=== PATIENT | female | born 1995 | race Caucasian/White ===

== ENCOUNTER → 2017-07-05 | Outpatient (CLI) | payer BC ==
[~2017-07-05] MED LIST: FLNCV PO; PRENTAB26 PO
--- NOTE | 2017-07-08 08:26 | DIAGNOSTIC IMAGING REPORT ---
<14 WKS SINGLE CLINICAL HISTORY: 21 years-old Female presenting with PELVIC PAIN, 8 WKS, left flank pain, last menstrual period 05/09/2017, no bleeding. TECHNIQUE: Real-time grayscale and M-mode Doppler ultrasound imaging of the pelvis was performed first using a transabdominal probe and subsequently transvaginal for better characterization. Color and spectral Doppler ultrasound imaging of the adnexa was also performed. COMPARISON: None. FINDINGS: Uterus: Single live intrauterine . [place]-rump length measures 11 mm which correlates with an estimated gestational age of 7 weeks 1 day. Gestational sac and yolk sac. heart rate 128 beats per minute. Retroflexed uterus. Normal amniotic fluid volume. Unable to accurately assess placental implantation secondary to early gestational age. No perigestational fluid to suggest hemorrhage. Cervix not well characterized. Right adnexa: Right ovary contains a corpus luteum. Right ovary measures 3.2 x 2.3 x 2.0 cm. Normal color Doppler flow and arterial and venous waveforms within the ovarian parenchyma. Left adnexa: Left ovary normal. Left ovary measures 2.8 x 1.5 x 2.5 cm. Normal color Doppler flow and arterial and venous waveforms within the ovarian parenchyma. Other: Trace free fluid, likely physiologic. IMPRESSION: Single live intrauterine with estimated gestational age of 7 weeks 1 day and estimated date of delivery 02/23/2018. Electronically signed by: Serafin Wolf M.D. 07/05/2017 1:15 PM Dictated Date/Time: 07/05/2017 1:11 PM
== END | disposition home or self-care (01) ==
LOC: C.ULTRBC 12:19
PROVIDERS: ATTEND Family Medicine
DX: R10.2 Pelvic and perineal pain (principal)

== ENCOUNTER → 2017-07-15 | Outpatient (CLI) | payer BC ==
[~2017-07-15] MED LIST changes: -PRENTAB26 PO
== END | disposition home or self-care (01) ==
LOC: C.LABSPEC 17:39
PROVIDERS: ATTEND Obstetrics & Gynecology
DX: Z34.01 Encounter for supervision of normal first pregnancy, first trimester (principal); Z3A.00 Weeks of gestation of pregnancy not specified

== ENCOUNTER → 2017-07-22 | Outpatient (CLI) | payer BC | END | disposition home or self-care (01) | LOC: C.LABSPEC 17:29 | PROVIDERS: ATTEND Obstetrics & Gynecology | DX: Z34.01 Encounter for supervision of normal first pregnancy, first trimester (principal); Z3A.00 Weeks of gestation of pregnancy not specified ==

== ENCOUNTER → 2017-07-22 | Outpatient (CLI) | payer BC | END | disposition home or self-care (01) | LOC: C.PAPS 11:35 | PROVIDERS: ATTEND Obstetrics & Gynecology | DX: Z34.01 Encounter for supervision of normal first pregnancy, first trimester (principal) ==

== ENCOUNTER → 2017-07-29 | Outpatient (CLI) | payer BC ==
[2017-07-29 15:26] LABS: BASO % 0.2 %; BASO ABS # 0.02 K/uL (0-0.2); EOS % 0.4 %; EOS ABS # 0.04 K/uL (0-0.5); HEMATOCRIT 39.4 % (37-47); HEMOGLOBIN 13.9 g/dL (12.0-16.0); IG# 0.03 K/uL (0.00-0.02); LYMPH % 17.9 %; LYMPH ABS # 1.61 K/uL (1.2-3.4); MEAN CELL VOLUME 87.4 fL (80-100); MEAN CORPUSCULAR HEMOGLOBIN 30.8 pg (25-34); MEAN CORPUSCULAR HGB CONC 35.3 g/dl (32-36); MEAN PLATELET VOLUME 10.6 fL (7.4-10.4); MONO % 4.1 %; MONO ABS # 0.37 K/uL (0.11-0.59); NEUT % 77.1 %; NEUT ABS # 6.91 K/uL (1.4-6.5); PLATELET COUNT 259 K/uL (130-400); RED CELL DISTRIBUTION WIDTH CV 12.8 % (11.5-14.5); RED CELL DISTRIBUTION WIDTH SD 41.1 fL (36.4-46.3); WHITE BLOOD COUNT 8.98 K/uL (4.8-10.8)
== END | disposition home or self-care (01) ==
LOC: C.LAB1850 12:50
PROVIDERS: ATTEND Obstetrics & Gynecology
DX: Z34.01 Encounter for supervision of normal first pregnancy, first trimester (principal)

== ENCOUNTER → 2017-09-02 | Outpatient (CLI) | payer BC | END | disposition home or self-care (01) | LOC: C.LAB1850 14:23 | PROVIDERS: ATTEND Obstetrics & Gynecology | DX: Z34.02 Encounter for supervision of normal first pregnancy, second trimester (principal) ==

== ENCOUNTER → 2017-11-21 | Outpatient (CLI) | payer BC ==
[2017-11-21 16:35] LABS: HEMATOCRIT 35.2 % (37-47); HEMOGLOBIN 12.3 g/dL (12.0-16.0)
== END | disposition home or self-care (01) ==
LOC: C.LAB1850 15:01
PROVIDERS: ATTEND Obstetrics & Gynecology
DX: Z34.03 Encounter for supervision of normal first pregnancy, third trimester (principal)

== ENCOUNTER 2018-02-13 16:54 | Outpatient (CLI) | payer BC ==
[~2018-02-13] VITALS: Ht 149.9 cm; Wt 65.5 kg
[2018-02-13] MEDS ORDERED: PRENTAB26 PO (17:34)
[2018-02-13 17:36] VITALS: Ht 149.9 cm; Wt 65.5 kg
== END 2018-02-13 18:48 | disposition home or self-care (01) ==
LOC: C.LD 16:54 → C.OPB 16:54 → EDSTATUS 16:56 → C.OPB 18:48
PROVIDERS: ATTEND Obstetrics & Gynecology
DX: Z34.00 Encounter for supervision of normal first pregnancy, unspecified trimester (principal)

== ENCOUNTER 2018-02-15 01:46 | Outpatient (CLI) | payer BC ==
[~2018-02-15 01:46] MED LIST changes: -FLNCV PO; +PRENTAB26 PO
--- NOTE | 2018-02-22 14:07 | EDITING REQUIRED CODING QUERY ---
DIAGNOSIS NEEDED To promote full compliance with coding requirements relating to patient care, physician participation is requested in all cases of director of sleep uncertainty. Please assist us with the question(s) below: Coding Question: The patient received care in labor and delivery on 02/15/18 as noted within the record. Please document the diagnosis that is being addressed by the medication/treatment. Provider Response: DIAGNOSIS: R/O rupture of amniotic membrane WEEKS OF GESTATION: 3rd trimester Thank you for your assistance, Debra Chavez - Camera Tuning Engineer
== END 2018-02-15 03:57 | disposition home or self-care (01) ==
LOC: C.LD 01:46 → C.OPB 01:46
PROVIDERS: ATTEND Obstetrics & Gynecology
DX: Z34.03 Encounter for supervision of normal first pregnancy, third trimester (principal)

== ENCOUNTER 2018-02-17 11:45 | Inpatient (IN) | payer BC ==
[~2018-02-17] VITALS: Ht 157.5 cm; Wt 64.5 kg
[2018-02-17] MEDS ORDERED: LACTATED RINGER'S 1000ML 1,000 ML IV PRN (12:02)
[2018-02-17 12:10] VITALS: BMI 26.0
[2018-02-17] MEDS ORDERED: PENICILLIN G POTASSIUM IV 6 MU in DEXTROSE 5% 250ML 250 ML IV ONE (12:30)
[2018-02-17 12:35] LABS: HEMOGLOBIN 13.1 g/dL (12.0-16.0); MEAN CELL VOLUME 83.3 fL (80-100); MEAN CORPUSCULAR HGB CONC 33.6 g/dl (32-36); MEAN PLATELET VOLUME 11.1 fL (7.4-10.4); PLATELET COUNT 182 K/uL (130-400); RED CELL DISTRIBUTION WIDTH CV 13.9 % (11.5-14.5); WHITE BLOOD COUNT 11.26 K/uL (4.8-10.8)
[2018-02-17] MEDS: LACTATED RINGER'S 1000ML 1,000 ML IV SCH ×2 (12:35→19:21)
[2018-02-17 13:40] VITALS: Ht 157.5 cm; Wt 64.5 kg
[2018-02-17] MEDS: PENICILLIN G POTASSIUM IV 3 MU in DEXTROSE 5% 100ML 100 ML IV PRN ×2 (16:09→20:04)
[2018-02-17] MEDS ORDERED: BUPIVACAINE 0.25% 30 ML VIAL ONE (18:56)
[2018-02-17] MEDS ORDERED: EpHEDrine SULFATE INJ 50 MG/ML AMP ONE (18:56)
[2018-02-17] MEDS ORDERED: FENTANYL CITRATE INJ 50 MCG/1 ML 2 ML VIAL ONE (18:56)
[2018-02-17] MEDS ORDERED: FENTANYL 2MCG/ML ROPIV 1.25MG/ML 100ML BAG ONE (18:57)
[2018-02-17] MEDS ORDERED: LACTATED RINGER'S 1000ML 500 ML IV PRN ×2 (19:27→20:05)
[2018-02-17] MEDS ORDERED: EpHEDrine SULFATE INJ 50 MG/ML AMP IV PRN (19:30)
[2018-02-17] MEDS ORDERED: NALOXONE HCL 0.4 MG/1 ML VIAL/CARP IV PRN (19:30)
[2018-02-17] MEDS ORDERED: OXYTOCIN 30 UNITS/500ML NSS IV PRN (20:15)
[2018-02-18] MEDS: PENICILLIN G POTASSIUM IV 3 MU in DEXTROSE 5% 100ML 100 ML IV PRN ×2 (00:03→04:11)
[2018-02-18] MEDS: LACTATED RINGER'S 1000ML 1,000 ML IV SCH (00:42)
[2018-02-18] MEDS: FENTANYL 2MCG/ML ROPIV 1.25MG/ML 100ML BAG EPI PRN ×2 (03:43→07:01)
[2018-02-18] MEDS ORDERED: HYDROCORTISONE ACETATE 25 MG SUPP PR PRN (09:00)
[2018-02-18] MEDS ORDERED: LANOLIN OINT EXT PRN (09:00)
[2018-02-18] MEDS ORDERED: SUPERCREAM 0.870 % 15GM JAR EXT PRN (09:00)
[2018-02-18] MEDS ORDERED: ACETAMINOPHEN/CODEINE 300/30MG TAB PO PRN ×2 (09:00)
[2018-02-18] MEDS ORDERED: ACETAMINOPHEN 325 MG TAB PO PRN (09:00)
[2018-02-18] MEDS ORDERED: OXYTOCIN 30 UNITS/500ML NSS IV PRN (09:00)
[2018-02-18] MEDS ORDERED: BENZOCAINE 20% AER SPR 82.5 GM CAN EXT PRN (09:00)
[2018-02-18] MEDS ORDERED: DIPHTHERIA/TETANUS/PERTUSSIS 0.5 ML SYR/VIAL IM. ONE (09:00)
--- NOTE | 2018-02-18 10:31 | Anesthesia Procedure Note ---
Anesthesia Epidural Removal Nt Date & Time Feb 18, 2018 at 10:31 Vital Signs Pain Intensity: 5.0 Notes Mental Status: alert / awake / arousable, participated in evaluation Nausea / Vomiting: adequately controlled Pain: adequately controlled Airway Patency, RR, SpO2: stable & adequate BP & HR: stable & adequate Hydration State: stable & adequate Neuraxial Anesthesia: was administered Anesthetic Complications: no major complications apparent, pt satisfied with anesthetic care Epidural: removed without complications, with tip intact
--- NOTE | 2018-02-18 11:00 | DELIVERY SUMMARY ---
DATE OF OPERATION: 02/18/2018 Patient is a 22-year-old G1, P0 white female with gestational age of 40 and 5/7th weeks who presented with ruptured membranes for clear fluid as documented in the office on exam and contractions that were every 2-3 minutes but mild. She was admitted to labor and delivery for further evaluation and management. She had walked, tried to stimulate labor and there was minimal change in her cervical dilation. She was noted to have bulging forewaters and membranes. This was ruptured for clear fluids but it was the small amount. She began and became more uncomfortable. She received effective epidural analgesia. Contractions appeared to be irregular and still mild to moderate and there was minimal cervical change. Presenting part remained high at -3 station. An IUPC was placed and then Pitocin augmentation was begun. The patient progressed to full dilation and pushed effectively over median episiotomy. Head was delivered in the right occiput anterior position, there was loose nuchal cord which was reduced after the head was delivered. The rest of the delivered with ease and was placed on the mother's abdomen. There was poor respiratory effort and poor tone. Cord was clamped and cut and the was placed on the baby bed for further attention by the nursery team. The placenta was expressed intact with the 3-vessel cord. A second-degree perineal laceration and episiotomy was repaired with 3-0 chronic in the usual fashion. Post- bleeding was controlled with dilute Pitocin. Estimated blood loss was 500 mL. Mother was doing well after delivery. The was taken to the nursery for further evaluation. I attest to the content of the Intraoperative Record and any orders documented therein. Any exception s are noted below.
[2018-02-18 12:45] VITALS: BP 116/67; PULSE 125; TEMP 37.4
[2018-02-18] MEDS: IBUPROFEN 600 MG TAB PO PRN ×2 (12:48→20:14)
[2018-02-18 15:10] VITALS: BP 111/74; PULSE 90; TEMP 36.7
[2018-02-18 20:00] VITALS: BP 119/83; PULSE 92; TEMP 36.4; O2SAT 100
[2018-02-18] MEDS: DOCUSATE SODIUM 100 MG CAP PO SCH (20:00)
[2018-02-18 23:30] VITALS: BP 109/69; PULSE 97; TEMP 36.5; O2SAT 99
[2018-02-19 03:50] VITALS: BP 111/74; PULSE 99; TEMP 36.6; O2SAT 99
[2018-02-19] MEDS: IBUPROFEN 600 MG TAB PO PRN ×2 (05:56→19:44)
[2018-02-19 07:27] VITALS: BP 109/75; PULSE 82; TEMP 36.5
[2018-02-19] MEDS ORDERED: PRENATAL VITAMIN TAB PO SCH (08:00)
--- NOTE | 2018-02-19 08:10 | Progress Note ---
Subjective Feb 19, 2018. Subjective conversation w/ patient, physical exam Diet Tolerance: Regular Diet Feeding Type: Breast Feeding Objective Vital Signs Date Time Temp Pulse Resp B/P (MAP) Pulse Ox O2 Delivery O2 Flow Rate FiO2 02/19/18 07:27 36.5 82 16 109/75 (86) Room Air 02/19/18 03:50 36.6 99 20 111/74 (86) 99 Room Air 02/18/18 23:30 99 Room Air 02/18/18 23:30 36.5 97 20 109/69 (82) 99 Room Air 02/18/18 20:00 100 Room Air 02/18/18 20:00 36.4 92 20 119/83 (95) 100 Room Air 02/18/18 15:10 36.7 90 16 111/74 (86) Room Air 02/18/18 15:10 Room Air 02/18/18 12:45 37.4 125 20 116/67 (83) Room Air 02/18/18 12:45 Room Air Physical Exam General Appearance: WELL-APPEARING, NO APPARENT DISTRESS Fundus: Firm, Non-Tender Extremities: no calf tenderness Laboratory Results Last 24 Hours Test 02/19/18 06:26 Assessment and Plan Post- Day#: 1 Continue Routine Care: - routine care - doing well
[2018-02-19 08:17] LABS: HEMATOCRIT 25.7 % (37-47); HEMOGLOBIN 8.5 g/dL (12.0-16.0)
[2018-02-19] MEDS: DOCUSATE SODIUM 100 MG CAP PO SCH (08:26)
[2018-02-19] MEDS: FERROUS SULFATE 325 MG TAB PO SCH (08:26)
[2018-02-19] MEDS: PRENATAL VITAMIN TAB PO SCH (08:26)
[2018-02-19 15:40] VITALS: BP 105/71; PULSE 92; TEMP 36.4
[2018-02-19 19:44] VITALS: BP 124/84; PULSE 103; TEMP 36.7; O2SAT 100
[2018-02-19] MEDS ORDERED: BISACODYL 5 MG TABEC PO SCH (20:00)
[2018-02-19 23:00] VITALS: BP 112/76; PULSE 79; TEMP 36.5; O2SAT 99
[2018-02-20] MEDS: IBUPROFEN 600 MG TAB PO PRN ×3 (04:27→17:54)
[2018-02-20] MEDS: DOCUSATE SODIUM 100 MG CAP PO SCH ×2 (04:49→08:00)
--- NOTE | 2018-02-20 06:49 | Progress Note ---
Subjective Feb 20, 2018. Subjective conversation w/ patient, physical exam Ambulation: ambulating normally Voiding: no voiding problems Passing Gas: Yes Diet Tolerance: Regular Diet Lochia: Small Feeding Type: Bottle Feeding Pain: pt reports 5/10 resolves with medication, overall improving Review of Systems Constitutional: No fever, No chills, No sweats Respiratory: No cough, No sputum, No wheezing Cardiac: No chest pain, No palpitations Abdomen: No pain, No nausea, No vomiting Female : No dysuria Objective Vital Signs Date Time Temp Pulse Resp B/P (MAP) Pulse Ox O2 Delivery O2 Flow Rate FiO2 02/19/18 23:00 36.5 79 16 112/76 (88) 99 Room Air 02/19/18 19:44 36.7 103 16 124/84 (97) 100 Room Air 02/19/18 19:44 Room Air 02/19/18 15:40 36.4 92 16 105/71 (82) Room Air 02/19/18 09:00 Room Air 02/19/18 07:27 36.5 82 16 109/75 (86) Room Air Physical Exam General Appearance: WELL-APPEARING, NO APPARENT DISTRESS Respiratory/Chest: chest non-tender, no respiratory distress Cardiovascular: regular rate, rhythm, no murmur Abdomen: normal bowel sounds Fundus: Firm, Relation to Umbilicus (below) Extremities: non-tender, no calf tenderness Laboratory Results Last 24 Hours Test 02/20/18 06:37 Medications Current Inpatient Medications Medications (Trade) Dose Ordered Sig/Susie Route Start Time Stop Time Status Last Admin Dose Admin Oxytocin (Pitocin IV) 30 units UD PRN IV 02/18/18 09:00 03/20/18 08:59 Benzocaine (Dermoplast Aero Spr) 1 appln PRN PRN EXT 02/18/18 09:00 03/20/18 08:59 02/18/18 12:48 1 APPLN Cocaine HCl (Supercream 0.870% Cr) BID PRN EXT 02/18/18 09:00 03/04/18 08:59 Hydrocortisone Acetate (Anusol Hc Supp) 25 mg BID PRN TX 02/18/18 09:00 03/20/18 08:59 Lanolin (Lanolin Oint) PRN PRN EXT 02/18/18 09:00 03/20/18 08:59 Ibuprofen (Motrin Tab) 600 mg Q4H PRN PO 02/18/18 09:00 03/20/18 08:59 02/20/18 04:27 600 MG Acetaminophen (Tylenol Tab) 650 mg Q6H PRN PO 02/18/18 09:00 03/20/18 08:59 Acetaminophen/ Codeine Phosphate (Tylenol w/ Codeine #3 Tab) 1 tab Q4H PRN PO 02/18/18 09:00 03/20/18 08:59 Acetaminophen/ Codeine Phosphate (Tylenol w/ Codeine #3 Tab) 2 tab Q4H PRN PO 02/18/18 09:00 03/20/18 08:59 Docusate Sodium (coLACE CAP) 100 mg BID PO 02/18/18 20:00 03/20/18 19:59 02/20/18 04:49 100 MG Ferrous Sulfate (Feosol Tab) 325 mg DAILY PO 02/19/18 08:00 03/21/18 07:59 02/19/18 08:26 325 MG Prenat Multivit/ [place]/Iron/Folic Ac ( Vitamin Tab) 1 tab DAILY PO 02/19/18 08:00 03/21/18 07:59 02/19/18 08:26 1 TAB Assessment and Plan Post- Day#: 2 Continue Routine Care: 22 yo PPD2 s/p -AFVSS, Pt doing well resting comfortably with baby -no si/sx of anemia -Plan is to formula/bottle feed -Tolerating regular diet -Continue to encourage ambulation -Routine care -Provided Discharge Counseling regarding vaginal bleeding, fever, f/u 6 weeks, no heavy lifting for 2-3 weeks, breast feeding, taking pre- vitamin, and nothing in the vagina for 6 weeks (tampons, douching, intercourse) Resident Physician Supervision Note: I interviewed and examined the patient. Discussed with Dr. Torres and agree with findings and plan as documented in the note. Any exceptions or clarifications are listed here: [None] Documented By: Daniel Chauhan Resident Tracking Resident Involvement: Resident Care Provided Care Provided: Adult Hospital Medicine
[2018-02-20 07:01] LABS: HEMATOCRIT 26.5 % (37-47); HEMOGLOBIN 8.6 g/dL (12.0-16.0)
--- NOTE | 2018-02-20 07:38 | Discharge Instructions ---
Discharge Instructions Date of Service Feb 20, 2018. Admission Reason for Admission: R/O Rupture Of Membranes Discharge Discharge Diagnosis / Problem: Discharge Goals Goal(s): Routine recovery after delivery Medications Continue Dispensed Medications: supercream, dermaplast, tucks Activity Recommendations Activity Limitations: per Instructions/Follow-up section . Instructions / Follow-Up Instructions / Follow-Up ACTIVITY RECOMMENDATIONS: * Gradual return to full activity over the next 2-3 weeks. * No lifting - nothing heavier than baby over the next 2-3 weeks. * Do not engage in vigorous exercise, sexual activity or sports until cleared by your physician. * Do not drive or operate any motorized equipment until cleared by your physician. * You may shower/bathe daily. MEDICATIONS: For discomfort or pain, you may use Acetaminophen (Tylenol), Ibuprofen (Advil), or Naproxen (Aleve) following the package directions. For constipation you may use Colace following the package directions. BREAST CARE: If you are not breast feeding: * Wear a supportive bra 24 hours a day for one to two weeks. * Avoid stimulating your breasts and nipples as much as possible during the first few weeks after delivery. * When taking a shower, have the warm water hit your back, not breasts. * When your breasts feel full, apply ice packs. Usually three to four times a day helps ease the discomfort. * Take a mild pain medication (Tylenol / Motrin) when you are uncomfortable. If breast feeding: * Use breast milk to lubricate nipples. Lansinoh cream may be used for sore nipples. You do not need to remove cream prior to breast feeding. If using a different brand of cream, check the label for directions regarding removal of cream prior to nursing. * Wear a supportive bra. * If having problems with breasts or breast feeding, call a functional consultant or your health care provider. EPISIOTOMY CARE: After delivery, if you have an episiotomy (stitches), the following steps will ease discomfort and aid healing. * For the first 24 hours after delivery, place ice packs next to your episiotomy to help reduce swelling. * After the first 24 hour-period, sitz baths, either portable or in the tub, are suggested. A shower with a shower arm sprayed over the episiotomy may be comforting. * Anitha care should be done after each voiding and bowel movement. Squirt warm water from a plastic bottle over the perineum (region of the body between the anus and urinary opening) and pat dry. * Use Dermoplast to ease discomfort. Shake container. [place] directly over the episiotomy. Place a Tucks on a clean sanitary pad next to your episiotomy. SPECIAL CARE INSTRUCTIONS: When you are discharged from the hospital, it is important for you to follow the instructions listed below: * During the first week at home, you should be able to care for yourself and your baby. In addition, the usual light household activities are encouraged. * Limit your activities to the way you feel. Do not try to clean the house or move furniture. Be sensible. * If you actively engage in sports and have done so up until the time of your delivery, you may resume these activities as soon as you feel able. This may take up to one month or even longer. Use good judgment. * Continue to take your vitamins for at least six weeks after the of your baby. * Your diet need not be limited unless you were on a special diet before your delivery. Breast-feeding mothers need around 2500 calories per day and at least 64-80 ounces of fluid per day (8 to 10 glasses). * You should eat foods from the four major food groups. Crash diets or fad diets are to be avoided. Eating lean meats, fresh fruits and vegetables, low-fat dairy products, high fiber foods and a regular exercise program, will help you get back to your pre- weight without putting your health at risk. * Constipation is sometimes a problem after delivery. Take a mild laxative as needed. If breast feeding, Milk of Magnesia is acceptable to use. You may use a suppository or Fleets enema if no episiotomy. * A daily shower or tub bath is suggested. Be sure to thoroughly and gently dry the perineum. * A bloody vaginal discharge will usually continue until around four weeks post . A small amount of bleeding may continue for as long as six weeks. Vaginal discharge changes from the bright red bleeding after delivery to pink then brownish and finally yellowish-pink before becoming white and disappearing. * Bleeding may increase with activity. Your first period may come in 4-8 weeks. If you are breast feeding, your period may be delayed even longer. * [place] (sex) can begin whenever both you and your partner feel comfortable and do not have any form of genital infection. It is recommended that you wait at least six weeks for internal and external healing to occur. If you have questions, please talk to your health care practitioner. A condom should be used to prevent infection and . * Foreplay, gentle intercourse and lubrication is very important the first several times to prevent pain. A water-based lubricant such as K-Y jelly or Astroglide may be used. * If you have RH negative blood and your baby is RH positive, you will receive RHOGAM by injection prior to discharge. The nurse will give you a card to keep with you that has the date and place that you received RHOGAM after delivery. * During your care, you had a Rubella screen done to check for the presence of rubella antibodies in your blood. If your test was negative, you will receive a Rubella vaccine prior to discharge. This vaccine may cause a fever, soreness at the injection site and flu-like symptoms. If these symptoms persist, notify your health care practitioner. is not advised for one month after a Rubella vaccine. * Verbalizes understanding of car seat law as reviewed with patient nursing. * Car Seat hand-out given and reviewed with patient by nursing. * Shaken baby information reviewed with patient by nursing. Call you doctor if: * Heavy bleeding (saturating several pads an hour) or passing clots the size of your fist. * A fever >101 degrees F (38.3 degrees C) on two occasions four hours apart and /or chills. * Unusual pain in the pelvic or vaginal areas. * "Baby Blues" lasting longer than two weeks. If you have any questions or concerns, call your health care practitioner at . FOLLOW UP VISIT: * Please call the office at to schedule a 6 week examination. It is important you keep this appointment. It is important for you to make arrangements for either yearly or twice yearly check-ups thereafter. Current Hospital Diet Patient's current hospital diet: Regular OB Diet Discharge Diet Recommended Diet: Regular OB Diet Pending Studies Studies pending at discharge: no Medical Emergencies . Who to Call and When: Medical Emergencies: If at any time you feel your situation is an emergency, please call 911 immediately. . Non-Emergent Contact Non-Emergency issues call your: [employer]end Et[employer] Developer Call Non-Emergent contact if: temperature is above 100.5 . . "Provider Documentation" section prepared by Rich Torres. . Resident Tracking Resident Involvement: Resident Care Provided Care Provided: Adult Hospital Medicine
[2018-02-20 07:58] VITALS: BP 113/73; PULSE 82; TEMP 36.6; O2SAT 100
[2018-02-20] MEDS: PRENATAL VITAMIN TAB PO SCH (08:38)
[2018-02-20] MEDS: FERROUS SULFATE 325 MG TAB PO SCH (08:38)
[2018-02-20 16:15] VITALS: BP 105/67; PULSE 85; TEMP 36.5; O2SAT 99
== END 2018-02-20 18:00 | disposition home or self-care (01) | DRG 775 ==
LOC: C.OPB 11:45 → C.LD 11:46 → C.OPB 12:04 → C.LD 12:04 → C.OBG 02-18 12:23
PROVIDERS: ADMIT Obstetrics & Gynecology; ATTEND Obstetrics & Gynecology
PROC: 0KQM3ZZ Repair Perineum Muscle, Percutaneous Approach (ICD-10-PCS; principal; 2018-02-17)
PROC: 10E0XZZ Delivery of Products of Conception, External Approach (ICD-10-PCS; principal; 2018-02-17)
DX: O69.81X0 Labor and delivery complicated by cord around neck, without compression, not applicable or unspecified (principal); Z3A.40 40 weeks gestation of pregnancy; O70.1 Second degree perineal laceration during delivery; Z37.0 Single live birth

== ENCOUNTER 2022-06-20 18:55 | Observation (INO) ==
[2022-06-20] MEDS ORDERED: SODIUM CHLORIDE 0.9% 1000ML 1,000 ML IV ONE (19:24)
--- NOTE | 2022-06-20 19:37 | Emergency Department Note ---
History of Present Illness General Chief complaint: Abdominal Pain Stated complaint: SEVERE ABOMINAL PAIN, VOMITING Time Seen by Provider: 06/20/22 19:15 Source: patient and family (Mother and sister who are at the bedside) Mode of arrival: ambulatory Limitations: no limitations History of Present Illness Maximum Pain Intensity: 7 This patient is a 26-year-old female who comes in after having abdominal pain since yesterday she had some generalized not feeling well and cramping she vomited once overnight she continues have some nausea she has a decreased appetite she says now her abdominal pain is a lower abdomen right greater than left. Nothing particular makes it better or worse she tried heating pad and P epto without relief no dysuria hematuria no trauma or injury she is on control so has irregular periods but is a no vaginal bleeding or discharge. Denies fever or back pain pain. No cough or shortness of breath no lower extremity pain or swelling. No history of similar. Home Medications Medication Instructions Recorded Confirmed Type L norgest/E estradiol-E estrad 1 tab PO DAILY 06/20/22 06/20/22 History 0.15 mg-30 mcg (84)/10 mcg(7) tabs,3mos (Jaimiess) Allergies Allergy/AdvReac Type Severity Reaction Status Date / Time Sulfa (Sulfonamide Allergy Mild EYE Verified 10/06/21 11:02 Antibiotics) DROP--CAUSED EYES TO SWELL Past Med/Surg History Medical History No pertinent past medical history Surgical History S/P sinus surgery Family History Other No pertinent family history Denies family history of Ovarian cancer Breast cancer Colorectal cancer Uterine cancer Social History Smoking Status: Never smoker Hx Substance Use: No Preferred Language: Portuguese Communication Ability: Effective Visual Impairment: No Limitations marital status: Single Current Living Situation: Family current occupational status: employed current occupation: wood shop teacher Feels Safe at Home: Yes Review of Systems A total of 10 systems reviewed and were otherwise negative Physical Exam Vital Signs Vital Signs - 24 hr 06/20/22 18:58 06/20/22 19:50 06/20/22 19:54 Temperature 36.9 C Temperature Source Temporal Artery Scan Pulse Rate 100 H 87 Pulse Rate [Finger] 87 Pulse Rhythm Regular Pulse Rhythm [Finger] Regular Pulse Strength Normal Pulse Strength [Finger] Normal Respiratory Rate 17 19 19 Respiratory Effort / Characteristics Non-Labored Spontaneous Non-Labored Spontaneous Respiratory Depth Normal Normal Respiratory Pattern Regular Regular Blood Pressure 117/86 Blood Pressure [Right Arm] 115/76 Blood Pressure Mean 96 Blood Pressure Mean [Right Arm] 89 Blood Pressure Position Sitting Pulse Oximetry 98 97 97 Oxygen Delivery Method Room Air Room Air Room Air Sepsis Recent Fever Within 48 Hours No Sepsis New/Unexplained Change in Mental Status N/A Sepsis Action Taken by Nursing No Action Required 06/20/22 21:00 06/20/22 22:57 Temperature Temperature Source Pulse Rate Pulse Rate [Finger] 81 83 Pulse Rhythm Pulse Rhythm [Finger] Regular Regular Pulse Strength Pulse Strength [Finger] Respiratory Rate 19 19 Respiratory Effort / Characteristics Non-Labored Spontaneous Non-Labored Spontaneous Respiratory Depth Normal Normal Respiratory Pattern Regular Blood Pressure Blood Pressure [Right Arm] 119/76 Blood Pressure Mean Blood Pressure Mean [Right Arm] 90 Blood Pressure Position Pulse Oximetry 98 97 Oxygen Delivery Method Room Air Room Air Sepsis Recent Fever Within 48 Hours Sepsis New/Unexplained Change in Mental Status Sepsis Action Taken by Nursing General: Well developed well nourished not ill-appearing young female who with in no acute distress, breathing comfortably on room air. Normal speech HEENT: Normal cephalic atraumatic. Pupils are equal round and reactive to light. Extraocular movements are intact. Oropharynx is pink with moist mucous membranes. No swelling of the mouth lips or tongue. Neck: Supple with a midline trachea. No meningeal signs or stiffness, no JVD or bruits. No Stridor. Chest: Clear to auscultation bilaterally. No wheezes or rhonchi. No increased work of breathing. Heart: Regular rate and rhythm without murmurs or gallops. Abdomen: Soft, moderately tender in the right lower abdomen nondistended without rebound guarding or rigidity. Extremities: No cyanosis clubbing or edema. No calf tenderness or assymetry Spine/Back. Non tender to palpation. No CVA tenderness Skin: Good turgor without rashes. Neurologic exam: Cranial nerves two through 12 are intact. Motor and sensation are intact and symmetrical throughout. Course Administered Medications Sodium Chloride (Nss 1000ml) 1,000 mls @ 125 mls/hr IV .Q8H NILDA Stop: 07/20/22 22:44 Last Admin: 06/20/22 22:57 Dose: 125 mls/hr Documented By: DEANNE Discontinued Medications Sodium Chloride (Nss 1000ml) 1,000 mls @ 999 mls/hr IV .Q1H1M ONE Stop: 06/20/22 20:24 Last Infusion: 06/20/22 21:42 Dose: 0 mls/hr Documented By: Admin: 06/20/22 20:27 Dose: 999 mls/hr Documented By: DEANNE Medical Decision Making Differential Diagnosis Appendicitis, kidney stone, ovarian cyst or torsion, electrolyte or metabolic abnormality, colitis, , ectopic , musculoskeletal Medical Records Attestation: I reviewed the patient's medical records. Home Medications Current Medication List: was personally reviewed by me Laboratory Data Attestation: I reviewed the patient's lab results. Result diagrams: 06/20/22 21:24 06/20/22 21:24 Lab Results 06/20/22 06/20/22 06/20/22 Range/Units 19:48 21:24 21:24 WBC 7.20 (4.8-10.8) K/ul RBC 4.85 (3.93-5.22) M/uL Hgb 14.8 (12.0-16.0) g/dl Hct 43.3 (34.1-44.9) % MCV 89.3 (80.0-100.0) fL MCH 30.5 (25.0-34.0) pg MCHC 34.2 (32.0-36.0) g/dL RDW Std Deviation 39.4 (36.4-46.3) fL RDW Coeff of Rena 12.0 (11.5-14.5) % Plt Count 312 (130-400) K/uL MPV 10.3 (9.4-12.3) fL Immature Gran % (Auto) 0.3 % Neut % (Auto) 66.4 % Lymph % (Auto) 25.3 % Rowan % (Auto) 6.5 % Eos % (Auto) 1.1 % Baso % (Auto) 0.4 % Neut # (Auto) 4.78 (1.4-6.5) K/uL Lymph # (Auto) 1.82 (1.2-3.4) K/uL Rowan # (Auto) 0.47 (0.24-0.82) K/uL Eos # (Auto) 0.08 (0-0.50) K/uL Baso # (Auto) 0.03 (0-0.2) K/uL Immature Gran # (Auto) 0.02 (0.00-0.02) K/uL Sodium 138 (136-145) mmol/L Potassium 3.4 L (3.5-5.1) mmol/L Chloride 104 (98-107) mmol/L Carbon Dioxide 23 (21-32) mmol/L Anion Gap 11 (3-11) BUN 11 (6-23) mg/dl Creatinine 0.59 L (0.6-1.2) mg/dl Est Cr Clr Drug Dosing 116.3 ml/min Est GFR ( Amer) 146.6 ml/min Est GFR (Non-Af Amer) 126.5 ml/min BUN/Creatinine Ratio 18.6 (10-20) Glucose 70 (70-99(Fasting)) mg/dl Calcium 8.5 (8.5-10.1) mg/dl Total Bilirubin 0.6 (0.2-1.0) mg/dl AST 19 (13-39) U/L ALT 19 (7-52) U/L Alkaline Phosphatase 46 (34-104) U/L Total Protein 7.9 (6.0-8.3) gm/dl Albumin 4.3 (3.4-5.0) gm/dl Globulin 3.6 (2.5-4.0) gm/dl Albumin/Globulin Ratio 1.2 (0.9-2) Lipase 16 (11-82) U/L HCG, Qual (Negative) SARS-CoV-2 (PCR) NEGATIVE (Negative) Influenza Type A (PCR) Negative (Neg) Influenza Type B (PCR) Negative (Neg) RSV (RT-PCR) Negative (Neg) 06/20/22 Range/Units 21:24 WBC (4.8-10.8) K/ul RBC (3.93-5.22) M/uL Hgb (12.0-16.0) g/dl Hct (34.1-44.9) % MCV (80.0-100.0) fL MCH (25.0-34.0) pg MCHC (32.0-36.0) g/dL RDW Std Deviation (36.4-46.3) fL RDW Coeff of Rena (11.5-14.5) % Plt Count (130-400) K/uL MPV (9.4-12.3) fL Immature Gran % (Auto) % Neut % (Auto) % Lymph % (Auto) % Rowan % (Auto) % Eos % (Auto) % Baso % (Auto) % Neut # (Auto) (1.4-6.5) K/uL Lymph # (Auto) (1.2-3.4) K/uL Rowan # (Auto) (0.24-0.82) K/uL Eos # (Auto) (0-0.50) K/uL Baso # (Auto) (0-0.2) K/uL Immature Gran # (Auto) (0.00-0.02) K/uL Sodium (136-145) mmol/L Potassium (3.5-5.1) mmol/L Chloride (98-107) mmol/L Carbon Dioxide (21-32) mmol/L Anion Gap (3-11) BUN (6-23) mg/dl Creatinine (0.6-1.2) mg/dl Est Cr Clr Drug Dosing ml/min Est GFR ( Amer) ml/min Est GFR (Non-Af Amer) ml/min BUN/Creatinine Ratio (10-20) Glucose (70-99(Fasting)) mg/dl Calcium (8.5-10.1) mg/dl Total Bilirubin (0.2-1.0) mg/dl AST (13-39) U/L ALT (7-52) U/L Alkaline Phosphatase (34-104) U/L Total Protein (6.0-8.3) gm/dl Albumin (3.4-5.0) gm/dl Globulin (2.5-4.0) gm/dl Albumin/Globulin Ratio (0.9-2) Lipase (11-82) U/L HCG, Qual Negative (Negative) SARS-CoV-2 (PCR) (Negative) Influenza Type A (PCR) (Neg) Influenza Type B (PCR) (Neg) RSV (RT-PCR) (Neg) Imaging Data Radiologist's Impression: Stat radthe appendix is identified in the right lower quadrant measures up to 0.9 cm with some small periappendiceal stranding. Findings are compatible with acute appendicitis without evidence for perforation MDM Narrative This patient comes in as scribed above. She was placed in the room C8. she is having lower abdominal pain and on my exam is most in the right lower quadrant. IV access established was hydrated with an IV normal saline bolus. she was kept n.p.o. blood work and urine was obtained. The risk and benefits of doing a CT and they freely consented. COVID testing was negative as was RSV and influenza. Her white count was normal she has no signal electrolyte or metabolic abnormality. Potassium is only mildly low at 3.4. test is negative. CAT scan shows findings consistent with acute appendicitis likely. I did consult Dr. Roy. He is going to review the images and admit the patient for an appendectomy. I discussed this with the family and the patient and they are in agreement with plan. Impression & Plan Acute appendicitis, Abdominal pain, Lab test negative for COVID-19 virus, Nausea Discharge Plan Visit Data Chief Complaint: Abdominal Pain Stated Complaint: SEVERE ABOMINAL PAIN, VOMITING ED Provider: Nikolas Dave Discharge Problem: Acute appendicitis, Abdominal pain, Lab test negative for COVID-19 virus, Nausea Forms Stand Alone Forms: My [employer] Prescriptions Prescriptions: No Action L norgest/e.estradiol-e.estrad [Jaimiess] 0.15 mg-30 mcg (84)/10 mcg (7) tablets,dose pack,3 month 1 tab PO DAILY Referrals Referrals: Akosua Domingo DO [Primary Care Provider] - : Acute appendicitis Qualifiers: Acute appendicitis type: unspecified acute appendicitis type Qualified Code(s): K35.80 - Unspecified acute appendicitis Abdominal pain Qualifiers: Abdominal location: right lower quadrant Qualified Code(s): R10.31 - Right lower quadrant pain
[2022-06-20 20:52] LABS: Influenza A virus by PCR Negative (Neg); Influenza B virus by PCR Negative (Neg); RSV by PCR Negative (Neg); SARS CoV2 RNA(COVID-19) Ceph NEGATIVE (Negative)
[2022-06-20 21:57] LABS: Basophils # (auto) 0.03 K/uL (0-0.2); Basophils % (auto) 0.4 %; Eosinophils # (auto) 0.08 K/uL (0-0.50); Eosinophils % (auto) 1.1 %; Hematocrit (blood only) 43.3 % (34.1-44.9); Hemoglobin 14.8 g/dl (12.0-16.0); Immature Granulocytes # (auto) 0.02 K/uL (0.00-0.02); Immature Granulocytes % (auto) 0.3 %; Lymphocytes # (auto) 1.82 K/uL (1.2-3.4); Lymphocytes % (auto) 25.3 %; Mean Corpuscular Hemoglobin 30.5 pg (25.0-34.0); Mean Corpuscular Hgb Conc 34.2 g/dL (32.0-36.0); Mean Corpuscular Volume 89.3 fL (80.0-100.0); Mean Platelet Volume 10.3 fL (9.4-12.3); Monocytes # (auto) 0.47 K/uL (0.24-0.82); Monocytes % (auto) 6.5 %; Neutrophils # (auto) 4.78 K/uL (1.4-6.5); Neutrophils % (auto) 66.4 %; Platelet Count 312 K/uL (130-400); RDW Standard Deviation 39.4 fL (36.4-46.3); Red Blood Count 4.85 M/uL (3.93-5.22)
[2022-06-20 22:04] LABS: Albumin Globulin Ratio 1.2 (0.9-2); Albumin Level 4.3 gm/dl (3.4-5.0); BUN Creatinine Ratio 18.6 (10-20); Bilirubin,Total 0.6 mg/dl (0.2-1.0); Calcium 8.5 mg/dl (8.5-10.1); Creatinine Clr Calc Pharmacy 116.3 ml/min; Est GFR (African American) 146.6 ml/min; Est GFR (Non-African American) 126.5 ml/min; Globulin 3.6 gm/dl (2.5-4.0); Potassium 3.4 mmol/L (3.5-5.1); Total Protein 7.9 gm/dl (6.0-8.3)
[2022-06-20 22:16] LABS: Pregnancy Test, Serum Negative (Negative)
[2022-06-20] MEDS ORDERED: SODIUM CHLORIDE 0.9% 1000ML 1,000 ML IV SCH (22:45)
[2022-06-20] MEDS ORDERED: ACETAMINOPHEN 325 MG TAB PO PRN (23:43)
[2022-06-20] MEDS ORDERED: MoRPHine SULFATE 4 MG/ML 1 ML CARP\\VIAL IV PRN (23:43)
[2022-06-20] MEDS ORDERED: MoRPHine SULFATE 2 MG/ML CARP IV PRN (23:43)
[2022-06-20] MEDS ORDERED: ONDANSETRON INJ 2 MG/ML 2 ML VIAL IV PRN (23:43)
[2022-06-20] MEDS: LACTATED RINGER'S 1,000 ML IV SCH (23:59)
[2022-06-21] MEDS: cefOXitin 2,000 MG in DEXTROSE 5% 50 ML IV SCH ×3 (00:10→13:11)
[2022-06-21 00:38] LABS: Appearance Urine Cloudy (Clear); Bacteria Urine Automated Negative (Negative); Blood Urine Negative (Negative); Color Urine Dark Yellow; Epithelial Cell Urine Auto >30 /lpf (0-5); Glucose Urine UA Negative (Negative); Ketones Urine 2+ (Negative); Leukocyte Esterase Urine Negative (Negative); Nitrite Urine Negative (Negative); Protein Urine Trace (Negative); RBC Urine Automated 0-4 /hpf (0-4); Specific Gravity Urine 1.031 (1.000-1.030); Urobilinogen Urine Negative (Negative)
[2022-06-21 00:52] LABS: Bilirubin Urine 1+ (Negative)
--- NOTE | 2022-06-21 06:51 | Anesthesiology Consultation ---
Date of Service June 21, 2022 Assessment & Plan (1) Encounter for pre-operative examination: Chart Review Chart Review: Acceptable Risk for Surgery and Patient NOT seen in Pre Admission Testing Consults Requested none History Surgery Operation Date: 06/21/22 08:20 Proposed Procedures p Laparoscopic Appendectomy - Manjeet Roy DO Height/Weight Height: 4 ft 11 in Weight: 63.2 kg Allergies Allergy/AdvReac Type Severity Reaction Status Date / Time Sulfa (Sulfonamide Allergy Mild EYE Verified 10/06/21 11:02 Antibiotics) DROP--CAUSED EYES TO SWELL Medications Home Medications Medication Instructions Recorded Confirmed Last Taken L norgest/E estradiol-E estrad 1 tab PO DAILY 06/20/22 06/20/22 Unknown 0.15 mg-30 mcg (84)/10 mcg(7) tabs,3mos (Jaimiess) Active Medications Generic Name Dose Route Start Last Admin Trade Name Freq PRN Reason Stop Dose Admin Cefoxitin Sodium 2,000 mg/ 60 mls @ 100 mls/hr 06/21/22 00:00 06/21/22 06:16 Dextrose IV 06/25/22 00:00 Infused Q6H NILDA Infusion Lactated Ringer's 1,000 mls @ 125 mls/hr 06/20/22 23:43 06/20/22 23:59 Lr IV 07/20/22 23:42 125 mls/hr .Q8H NILDA Administration Morphine Sulfate 2 mg 06/20/22 23:43 06/21/22 00:02 Morphine Sulfate 2 Mg/Ml Carp IV 07/04/22 23:42 2 mg Q3H PRN Administration Pain (1,2,3,4,5) & Pre PT Past Medical History Medical History No pertinent past medical history Past Family History Family History Other No pertinent family history Denies family history of Ovarian cancer Breast cancer Colorectal cancer Uterine cancer Past Surgical History Surgical History S/P sinus surgery Social History Smoking Status: Never smoker Hx Alcohol Use: No Hx Substance Use: No Physical Exam Vital Signs Last Vital Signs Temp 97.5 F L 06/20/22 23:44 Pulse 80 12/18/22 23:44 Resp 16 06/20/22 23:44 BP 117/76 06/20/22 23:44 Pulse Ox 100 06/20/22 23:44 O2 Del Method 06/20/22 23:44 Testing Laboratory Results 06/20/22 21:24 06/20/22 21:24 Urine Color Dark Yellow 06/21/22 Unknown Urine Appearance Cloudy (Clear) A 06/21/22 Unknown Urine pH 5.0 (4.5-7.5) 06/21/22 Unknown Ur Specific [place] 1.031 (1.000-1.030) H 06/21/22 Unknown Urine Protein Trace (Negative) H 06/21/22 Unknown Urine Glucose (UA) Negative (Negative) 06/21/22 Unknown Urine Ketones 2+ (Negative) H 06/21/22 Unknown Urine Nitrite Negative (Negative) 06/21/22 Unknown Ur Leukocyte Esterase Negative (Negative) 06/21/22 Unknown Urine WBC (Auto) 1-5 /hpf (0-5) 06/21/22 Unknown Urine RBC (Auto) 0-4 /hpf (0-4) 06/21/22 Unknown U Hyaline Cast (Auto) 5-10 /lpf (0-5) H 06/21/22 Unknown U Epithel Cells (Auto) >30 /lpf (0-5) H 06/21/22 Unknown Urine Bacteria (Auto) Negative (Negative) 06/21/22 Unknown
[2022-06-21] MEDS: LACTATED RINGER'S 1,000 ML IV SCH (07:56)
--- NOTE | 2022-06-21 08:23 | CT Scan Report ---
ABDOMEN AND PELVIS CT WITHOUT CONTRAST CT DOSE: 285.15 mGy.cm HISTORY: Right lower quadrant pain. Assess for appendicitis. TECHNIQUE: Multiaxial CT images of the abdomen and pelvis were performed without contrast. A dose lo wering technique was utilized adhering to the principles of ALARA. COMPARISON STUDY: None. FINDINGS: The lung bases are clear. No pneumoperitoneum. No pneumatosis. No fractures within the visu alized osseous structures. The appendix is identified within the right lower quadrant and measures up to 9 mm with mild periappendiceal fat stranding. This is consistent with acute appendicitis. No perf oration or abscess identified this time. The bladder, uterus, bilateral adnexa are within normal limi ts. There appear to be a few sigmoid diverticula. No evidence for acute diverticulitis. No evidence f or bowel obstruction. The unenhanced liver, gallbladder, spleen, adrenal glands, pancreas, and kidney s are unremarkable. No renal or ureteral stones. No hydronephrosis. No retroperitoneal lymphadenopath y. Normal caliber abdominal aorta. IMPRESSION: Acute appendicitis. ACT 112: Negative or not required by law. Electronically signed by: Parvez Edge M.D. 06/21/2022 8:21 AM
--- NOTE | 2022-06-21 08:29 | History & Physical Report ---
Date of Service June 21, 2022 Assessment & Plan (1) Acute appendicitis: Plan: This is a 26yF with no significant PMH who presents to the [facility] ED on 06/20/22 with complaints of abdominal pain starting Tuesday morning, associated with nausea/vomiting. A CT a/p was obtained that was read by our [facility]haw[facility] radiologist as acute appendicitis without evidence of perforation, confirmed by our radiologist this AM. WBC 7. Vital signs are stable. On exam patient's abdom en is soft with tenderness to palpation across the mid abdomen, right side more tender than the left. Based on clinical findings, history/exam we will proceed with taking the patient to the OR today for laparoscopic appendectomy. Keep NPO with IVF and pre-op abx. Patient is agreeable with the plan. Dr. Roy will obtain consent. Admission and Anticipated Discharge Date Admission Date: June 20, 2022 History of Present Illness Primary Care Provider: Akosua Domingo DO This is a 26yF with no significant PMH who presents to the [facility] ED on 06/20/22 with complaints of abdominal pain. Patient states her abdominal pain started Tuesday morning in her stomach area, she was having cramps and nausea. In the evening time the cramping and pain migrated to her lower abdomen, mostly in the right lower. She vomited x1 and states she was unable to get comfortable. The pain persisted all day Tuesday and after discussion with her family she decided to come into the ER for evaluation. A CT a/p was obtained that was read by our night-hawk radiologist as acute appendicitis without evidence of perforation. Patient reports + chills. Denies fevers, chest pain, shortness of breath, or change in bowel habits. No prior abdominal surgical history. Last had anything to eat/drink at 6pm yesterday. Allergies Allergy/AdvReac Type Severity Reaction Status Date / Time Sulfa (Sulfonamide Allergy Mild EYE Verified 10/06/21 11:02 Antibiotics) DROP--CAUSED EYES TO SWELL Home Medications Medication Instructions Recorded Confirmed Type L norgest/E estradiol-E estrad 1 tab PO DAILY 06/20/22 06/20/22 History 0.15 mg-30 mcg (84)/10 mcg(7) tabs,3mos (Jaimiess) Past Med/Surg History Medical History No pertinent past medical history Surgical History S/P sinus surgery Family History Other No pertinent family history Denies family history of Ovarian cancer Breast cancer Colorectal cancer Uterine cancer Social History Smoking Status: Never smoker Hx Alcohol Use: No Hx Substance Use: No Preferred Language: Thai Communication Ability: Effective Visual Impairment: No Limitations Dairy Nutritionist Required: No Beliefs That Will Affect Care: None marital status: Single Current Living Situation: Family current occupational status: employed current occupation: education teacher Feels Safe at Home: Yes Safety Concerns: Feels Safe At This Time Review of Systems Constitutional: + chills; no fever Respiratory: no dyspnea Cardiovascular: no chest pain Gastrointestinal: + abdominal pain (mid and right lower abdomen), + nausea and + vomiting; no diarrhea/loose stools Physical Exam Physical Exam: awake/alert Constitutional: well developed and well nourished; no acute distress Respiratory: normal respiratory effort Gastrointestinal (Abdomen): Inspection/Auscultation: abdomen not distended Percussion/Palpation: + abdomen tender (ttp across mid abdomen, R>L) and abdomen soft Results & Data Results & Data ([facility]) Vital Signs (Past 12 Hours) Vital Signs Temp Pulse Resp BP Pulse Ox O2 Del Method 06/21/22 07:36 36.7 C 68 16 110/72 99 Room Air 06/20/22 23:44 36.4 C L 80 16 117/76 100 Room Air 06/20/22 22:57 83 19 119/76 97 Room Air 06/20/22 21:00 81 19 98 Room Air [phone] Scan Report Patient:LISSETT MARTI Admit Date:06/20/22 MR#:[id number] Address1:[address] [place] [address] Acct ID:[id number] Address2: Date:1995 [facility] Zip:[place] [address] Age:26 Location:3E Sex:F Room/Bed:[facility] Att Phy:Manjeet Roy DO Diagnosis:ACUTE APPENDICITIS Tiera Phy:Akosua Domingo D.O. Service Date:06/20/22 Fam Phy: Interpreting Phy:Parvez Edge MDAdmit Phy:Manjeet Roy DO Ordering Phy:Nikolas Dave M.D. cc: ~ ABDOMEN AND PELVIS CT WITHOUT CONTRAST CT DOSE: 285.15 mGy.cm HISTORY: Right lower quadrant pain. Assess for appendicitis. TECHNIQUE: Multiaxial CT images of the abdomen and pelvis were performed without contrast. A dose lowering technique was utilized adhering to the principles of ALARA. COMPARISON STUDY: None. FINDINGS: The lung bases are clear. No pneumoperitoneum. No pneumatosis. No fractures within the visualized osseous structures. The appendix is identified within the right lower quadrant and measures up to 9 mm with mild periappendiceal fat stranding. This is consistent with acute appendicitis. No perforation or abscess identified this time. The bladder, uterus, bilateral adnexa are within normal limits. There appear to be a few sigmoid diverticula. No evidence for acute diverticulitis. No evidence for bowel obstruction. The unenhanced liver, gallbladder, spleen, adrenal glands, pancreas, and kidneys are unremarkable. No renal or ureteral stones. No hydronephrosis. No retroperitoneal lymphadenopathy. Normal caliber abdominal aorta. IMPRESSION: Acute appendicitis. ACT 112: Negative or not required by law. Electronically signed by: Parvez Edge M.D. 06/21/2022 8:21 AM Code Status & VTE Plan VTE Prophylaxis Plan VTE Prophylaxis will be ordered: Yes Supervising Physician Co-Signing Physician Notes I personally saw and evaluated the patient with Tiffany Silva PA-C and agree with the assessment and plan. 26-year-old female with acute appendicitis CT images and results personally viewed by myself, consistent with acute appendicitis without perforation or abscess at this point Will admit the patient to surgery keep n.p.o. start IV antibiotics Plan on laparoscopic appendectomy, possible open Consent was obtained, risk discussed including bleeding, infection, leak, abscess PG Care Time/CCT Total # of Minutes Spent Total Time Spent with Patient: Total time spent is greater than 50% in coordination of care (as documented) at patient's floor/unit and/or counseling patient: Coding Level of Care Code 56170 Initial Inpt Care Lvl 3 Diagnoses Acute appendicitis K35.80 Acute appendicitis type: unspecified acute appendicitis type (1) Acute appendicitis Acute appendicitis type: unspecified acute appendicitis type Qualified Code(s): K35.80 - Unspecified acute appendicitis
[2022-06-21] MEDS ORDERED: PROPOFOL IV EMULSION 10 MG/ML 20 ML VIAL IV ONE (08:55)
[2022-06-21] MEDS ORDERED: ONDANSETRON INJ 2 MG/ML 2 ML VIAL ONE (08:55)
[2022-06-21] MEDS ORDERED: ROCURONIUM BROMIDE 10 MG/ML 5 ML VIAL IV ONE (08:55)
[2022-06-21] MEDS ORDERED: DEXAMETHASONE SOD INJ 4 MG/ML VIAL ONE (08:55)
[2022-06-21] MEDS ORDERED: MIDAZOLAM HCL 1 MG/ML 2ML VIAL ONE (08:55)
[2022-06-21] MEDS ORDERED: LIDOCAINE 2% MPF LOCAL 5 ML VIAL INFIL ONE (08:55)
[2022-06-21] MEDS ORDERED: fentaNYL citrate 100 MCG/2 ML VIAL ONE (08:56)
[2022-06-21] MEDS ORDERED: ONDANSETRON INJ 2 MG/ML 2 ML VIAL IV PRN (09:22)
[2022-06-21] MEDS ORDERED: NALOXONE HCL 0.4 MG/1 ML VIAL/CARP IV PRN (09:22)
[2022-06-21] MEDS ORDERED: PROMETHAZINE HCL 12.5 MG in SODIUM CHLORIDE 0.9% 50 ML IV PRN (09:22)
[2022-06-21] MEDS ORDERED: FLUMAZENIL 0.1 MG/1 ML 10 ML VIAL IV PRN (09:22)
[2022-06-21] MEDS ORDERED: fentaNYL citrate 100 MCG/2 ML VIAL IV PRN (09:22)
[2022-06-21] MEDS ORDERED: ATROPINE SULFATE 0.1 MG/ML 10ML SYR IV PRN (09:22)
[2022-06-21] MEDS ORDERED: ePHEDrine sulfate 50 MG/ML AMP IV PRN (09:22)
[2022-06-21] MEDS ORDERED: ACETAMINOPHEN 1000 MG/100 ML IV IV ONE (10:18)
[2022-06-21] MEDS ORDERED: BUPIVACAINE/EPINEPHRINE 0.25% 1:200,000 30 ML VIAL ONE (10:32)
--- NOTE | 2022-06-21 11:31 | Post Operative Brief Note ---
PG Immediate Post Op with CF Date of Surgery June 21, 2022 Pre & Post Diagnosis Operation Date: 06/21/22 08:20 Pre-Op Diagnosis: Acute Appendicitis Post-Op Diagnosis: Acute Appendicitis I identified the patient and participated in the time-out.: Yes Procedure Operation Date: 06/21/22 08:20 Actual Procedures p Laparoscopic Appendectomy(Not Applicable) - Manjeet Roy DO Surgeon Manjeet Roy DO Inventory Specialist Manager Tiffany Silva PA-C Estimated Blood Loss 5 Findings See Below Acutely inflamed dilated appendix without perforation Specimens Specimen Description: A. Appendix Drains Marinelli Catheter Anesthesia Type General Complications none Disposition Disposition: Recovery Room
--- NOTE | 2022-06-21 11:32 | Operative Report ---
PG Post Operative Report Pre & Post Diagnosis Operation Date: 06/21/22 08:20 Pre-Op Diagnosis: Acute Appendicitis Post-Op Diagnosis: Acute Appendicitis I identified the patient and participated in the time-out.: Yes Procedure Operation Date: 06/21/22 08:20 Actual Procedures p Laparoscopic Appendectomy(Not Applicable) - Manjeet Roy DO Surgeon Manjeet Roy DO Business Operations Coordinator Tiffany Silva PA-C Estimated Blood Loss 5 Findings See Below Acutely inflamed dilated appendix without perforation Specimens Appendix to pathology Drains None Anesthesia Type General Complications none Disposition Disposition: Recovery Room Indications 26-year-old female with acute appendicitis Description of Procedure The patient was brought to the OR and placed in the supine position and SCD's placed. At this time she underwent general endotracheal anesthesia without incident. At this time a Marinelli catheter was placed under sterile conditions. Her abdomen was prepped and draped in the usual sterile fashion. She was given appropriate pre-operative antibiotics. A timeout was called, the procedure was verified as Laparoscopic appendectomy, possible open. Surgical, anesthesia and nursing teams agreed and the procedure was begun. After injection of 0.25% Marcaine with epinephrine, a supraumbilical incision was made using a #11 blade scalpel and carried down to the fascia with a hemostat. The abdomen was then elevated with towel clamps and entered using the Veress needle confirming position using the saline drop test. Pneumoperitoneum was established and 5mm trocar was placed. Laparoscope was introduced. No injury was seen from our entrance to the abdomen. At this time a 5mm suprapubic port and 12mm LLQ port were placed under direct visualization. The patient was placed in Trendelenburg and rotated to the left. At this time the appendix was visualized and the tip was freed and elevated toward the abdominal wall. The appendix appeared inflamed, dilated and edematous. A window was created in the mesoappendix at the base of the appendix. A 45mm bejarano load stapler was then fired across the base of the appendix which appeared healthy. The mesoappendix was then taken using Harmonic device. The appendix was then placed in an Endocatch bag and removed through the LLQ port site. Staple line was inspected and was intact. Hemostasis was complete. The 12 mm port was then closed at the fascial level using a 0 Vicryl suture using the suture passer. All ports were removed under direct visualization and no bleeding was noted. The abdomen was desufflated and the skin was closed using 4-0 Monocryl in a subcuticular fashion. Sterile dressings were applied. Marinelli catheter was removed. The patient was then awakened from anesthesia having remained stable throughout the entire case and transported to PACU. All needle and sponge counts were correct x 2. The physician assistant editor was present scrubbed for entire case. She was essential in positioning, prepping and draping the patient, driving the laparoscope, retraction exposure, closure of the incisions and placement the dressings. I attest to the content of the Intraoperative Record and any orders documented therein. Any exceptions are noted below.
[2022-06-21] MEDS ORDERED: NEOSTIGMINE METHYLSULFATE 1 MG/ML 10ML VIAL ONE (11:44)
[2022-06-21] MEDS ORDERED: GLYCOPYRROLATE 0.2 MG/ML VIAL ONE (11:44)
[2022-06-21] MEDS ORDERED: SODIUM CHLORIDE 0.9% 50 ML BAG ONE (11:50)
[2022-06-21] MEDS ORDERED: PROMETHAZINE HCL INJ 25 MG/ML 1 ML VIAL ONE (11:51)
--- NOTE | 2022-06-21 12:15 | Anesthesiology Progress Note ---
Date of Service June 21, 2022 Anesthesia Post Procedure Vital Signs Vital Signs: Temp Pulse Pulse Pulse Resp BP BP 06/21/22 12:05 36.4 C L 78 11 L 110/53 L 06/21/22 11:55 96 H 19 116/52 L 06/21/22 11:45 108 H 20 113/50 L 06/21/22 11:38 36.2 C L 118 H 20 121/51 L 06/21/22 09:11 36.5 C 85 18 126/70 06/21/22 07:36 36.7 C 68 16 110/72 06/20/22 23:44 36.4 C L 80 16 117/76 06/20/22 22:57 83 19 119/76 06/20/22 21:00 81 19 06/20/22 19:54 87 19 06/20/22 19:50 87 19 115/76 06/20/22 18:58 36.9 C 100 H 17 117/86 Pulse Ox O2 Del Method O2 Flow Rate 06/21/22 12:05 100 Oxymask 2 06/21/22 11:55 100 Oxymask 2 06/21/22 11:45 100 Oxymask 9 06/21/22 11:38 100 Oxymask 9 06/21/22 09:11 99 Room Air 06/21/22 07:36 99 Room Air 06/20/22 23:44 100 Room Air 06/20/22 22:57 97 Room Air 06/20/22 21:00 98 Room Air 06/20/22 19:54 97 Room Air 06/20/22 19:50 97 Room Air 06/20/22 18:58 98 Room Air Pain Intensity Bilateral Abdomen: Pain Intensity: 5 Transfer of Care Handoff Completed per policy Notes Mental Status: alert / awake / arousable Patient Amnestic to Procedure: Yes Nausea / Vomiting: adequately controlled Pain: adequately controlled Airway Patency, RR, SpO2: stable & adequate BP & HR: stable & adequate Hydration State: stable & adequate Anesthetic Complications: no major complications apparent
[2022-06-21] MEDS ORDERED: LACTATED RINGER'S 1,000 ML IV SCH (12:41)
[2022-06-21] MEDS ORDERED: oxyCODONE HCL IR 5 MG TAB (IMMEDIATE RELEASE) PO PRN ×2 (12:41)
--- NOTE | 2022-06-21 20:51 | Discharge Summary ---
Date of Service June 21, 2022 Admission HPI Per Admitting Provider This is a 26yF with no significant PMH who presents to the [facility] ED on 06/20/22 with complaints of abdominal pain. Patient states her abdominal pain started Tuesday morning in her stomach area, she was having cramps and nausea. In the evening time the cramping and pain migrated to her lower abdomen, mostly in the right lower. She vomited x1 and states she was unable to get comfortable. The pain persisted all day Tuesday and after discussion with her family she decided to come into the ER for evaluation. A CT a/p was obtained that was read by our [facility] radiologist as acute appendicitis without evidence of perforation. Patient reports + chills. Denies fevers, chest pain, shortness of breath, or change in bowel habits. No prior abdominal surgical history. Last had anything to eat/drink at 6pm yesterday. Principal Diagnosis acute appendicitis Discharge Exam awake/alert Constitutional well developed and well nourished; no acute distress Respiratory normal respiratory effort Gastrointestinal (Abdomen) Inspection/Auscultation: + abdominal surgical incision (c/d/i, surgical dressings in place); abdomen not distended Percussion/Palpation: + abdomen tender (expected kianna incisional discomfort to palpation) and abdomen soft Discharge Data Allergies Allergy/AdvReac Type Severity Reaction Status Date / Time Sulfa (Sulfonamide Allergy Mild EYE Verified 10/06/21 11:02 Antibiotics) DROP--CAUSED EYES TO SWELL Consultations 06/20/22 22:41 ED Decision to Admit Stat Procedures Performed Operation Date: 06/21/22 08:20 Actual Procedures p Laparoscopic Appendectomy(Not Applicable) - Manjeet Roy DO Ordered Studies 06/20/22 21:38 CT abd pelvis wo con Urgent Hospital Course (1) Acute appendicitis: This is a 26yF who presented to the [facility] ED on 06/20/22 with abdominal pain. Workup in the ED showed a WBC of [address] a/p concerning for acute appendicitis. The patient was tender to palpation in the RLQ. Patient made NPO with IVF, given IV abx, and booked for the OR. On 06/21 the patient went to the OR with Dr. Roy for a laparoscopic appendectomy. The patient tolerated the procedure well, see operative report for full details. Post operatively the patient's diet was advanced, pain managed on prn meds, and incisions clean/dry/intact. On POD#0 the patient was deemed stable for discharge to home. Total Time Total Time Spent Total Time Spent (In Minutes): 10 Discharge Plan Discharge Items Patient Disposition: Home - Self-Care Reason For Visit: ACUTE APPENDICITIS Discharge Diagnosis: laparoscopic appendectomy Activity: Per Instructions section Lifting: No more than 10 pounds Bathing Comment: may shower starting 06/22/22 over dressings; no soaking in tubs/pools Exercise/Sports: Wait until after follow-up appointment Driving/Machine Use: no driving while taking narcotics for pain Non-emergency contact: Surgeon Call non-emergency contact if: you have any medication questions, your symptoms worsen, your pain is not controlled, your pain is concerning for you, you have a fever, your temperature is above 101.5, your wound has increased redness, your wound has increased drainage and your wound pain has increased Follow-up/Referrals: Manjeet Roy DO [Physician] - 07/02/22 9:00 am (Please call to schedule follow up in clinic within 2 weeks ) Akosua Domingo DO [Primary Care Provider] - Diet: Regular Addtl Attending Provider Instructions: You may remove your outer surgical dressings on 06/23/22 (tape/gauze). You will have small white bandages on underneath called steri-strips. You may shower with these on. They will tend to fall off on their on within 7-10days. You may purchase Tylenol and/or Ibuprofen over the counter if needed for additional pain control. Take per manufacturers instructions. Pending Studies at Discharge: Yes Studies:: surgical pathology Stand-Alone Forms: My [facility], Smoking Cessation Medications and DC Order Prescriptions: New oxycodone 5 mg tablet 5 - 10 mg PO .[id number] PRN (Reason: pain, for initial therapy, max 6 tabs per day) Qty: 12 0RF Continued L norgest/e.estradiol-e.estrad [Jaimiess] 0.15 mg-30 mcg (84)/10 mcg (7) tablets,dose pack,3 month 1 tab PO DAILY Discharge Orders: Discharge Order (Routine); Ordered 06/21/22 Ordered By: Tiffany Silva Admission Data Admit Date/Time: 06/20/22 22:58 Attending Provider: Manjeet Roy Admit Provider: Manjeet Roy Primary Care Provider: Akosua Domingo Other Providers: Manjeet Roy Other Interventions: Discharge Summary Assessment (RN) Last Done: 06/21/22 17:22 Coding Level of Care Code D/C DAY MANAGEMENT <30 MINS Diagnoses Acute appendicitis K35.80 Acute appendicitis type: unspecified acute appendicitis type
== END 2022-06-21 18:36 | disposition home or self-care (01) ==
LOC: ED 18:55 → 3E 22:58 → INTOOBSV 22:58 → 3E 23:24
DX: Z88.2 Allergy status to sulfonamides; Z79.899 Other long term (current) drug therapy; K35.80 Unspecified acute appendicitis; Z20.822 Contact with and (suspected) exposure to COVID-19